=== PATIENT | male | born 1970 | race Caucasian/White ===

== ENCOUNTER 2020-06-01 13:15 | Emergency (ER) | payer OTHER ==
[~2020-06-01] VITALS: Ht 180.3 cm; Wt 112.7 kg
--- NOTE | 2020-06-01 15:23 | REP ---
INDICATION: co exp/smoke. COMPARISON: 05/24/2012. TECHNIQUE: PA and lateral views of the chest. FINDINGS: There is minor focal atelectasis inferiorly in the lingular segment of the left upper lobe and inferiorly in the right middle lobe as changes from the prior study. The lung mann are otherwise clear. The cardiac size is normal. The lei, mediastinum, and skeletal structures are unremarkable. IMPRESSION: Focal atelectasis inferiorly in the right middle lobe and inferiorly in the lingula. <Electronically signed by Leo Lazaro > 06/01/20 [id number]
[2020-06-01 16:43] VITALS: BP 132/92
== END 2020-06-01 16:51 | disposition home or self-care (01) ==
LOC: M ED 13:15
DX: T58.8X1A Toxic effect of carbon monoxide from other source, accidental (unintentional), initial encounter (principal); J02.9 Acute pharyngitis, unspecified; R11.0 Nausea; J98.11 Atelectasis